=== PATIENT | female | born 1945 | race Caucasian/White ===

== ENCOUNTER → 2023-11-04 08:07 | Outpatient (REF) | payer MEDICARE, OTHER, SELFPAY | LOC: RAD 08:07 | PROVIDERS: ATTENDING PHYSICIAN Nurse Practitioner Family | DX: M79.604 Pain in right leg (principal) | CPT/HCPCS: 73590 ==

== ENCOUNTER → 2024-05-06 12:02 | Outpatient (REF) | payer MEDICARE, OTHER, SELFPAY | LOC: RAD 12:02 | PROVIDERS: ATTENDING PHYSICIAN Internal Medicine Cardiovascular Disease; FAMILY PHYSICIAN Nurse Practitioner Family; OTHER PHYSICIAN Nurse Practitioner Family | DX: R07.89 Other chest pain (principal) | CPT/HCPCS: 71046 ==

== ENCOUNTER → 2024-05-27 14:53 | Outpatient (REF) | payer MEDICARE, OTHER, SELFPAY | LOC: RCS 14:53 | PROVIDERS: ATTENDING PHYSICIAN Internal Medicine Cardiovascular Disease; FAMILY PHYSICIAN Nurse Practitioner Family | DX: R07.89 Other chest pain (principal); R06.09 Other forms of dyspnea; R94.31 Abnormal electrocardiogram [ECG] [EKG] | CPT/HCPCS: 93306 ==

== ENCOUNTER 2024-09-05 18:05 | Emergency (ER) | payer SELFPAY ==
[2024-09-05 18:11] VITALS: BP 184/83
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
[2024-09-05 22:32] VITALS: BP 187/63
== END 2024-09-05 22:50 | disposition home or self-care (01) ==
LOC: EMR 18:05
PROVIDERS: EMERGENCY PHYSICIAN Student in an Organized Health Care Education/Training Program; FAMILY PHYSICIAN Nurse Practitioner Family
DX: S13.4XXA Sprain of ligaments of cervical spine, initial encounter (principal); M25.562 Pain in left knee; V49.40XA Driver injured in collision with unspecified motor vehicles in traffic accident, initial encounter; Y92.410 Unspecified street and highway as the place of occurrence of the external cause; R03.0 Elevated blood-pressure reading, without diagnosis of hypertension; K57.92 Diverticulitis of intestine, part unspecified, without perforation or abscess without bleeding; Z85.528 Personal history of other malignant neoplasm of kidney; Z90.5 Acquired absence of kidney; Z98.0 Intestinal bypass and anastomosis status; Z88.8 Allergy status to other drugs, medicaments and biological substances
CPT/HCPCS: 99284; 72050; 73564

== ENCOUNTER 2024-10-18 15:57 | Emergency (ER) | payer MEDICARE, OTHER, SELFPAY ==
--- NOTE | 2024-10-18 16:13 | ED.GENMED ---
ED Provider Triage
<Vivienne Adams PA-C - Last Filed: 10/18/24 16:20>
-
Patient seen by provider in Triage?: Seen in Triage
A medical screening examination has been initiated by a qualified medical provider. Based on the assessment performed at this time, it has been determined that an emergent medical condition may exist and the patient has been informed that further
medical evaluation and possible additional diagnostic testing may be needed.
HPI: This is a medical evaluation conducted in person to initiate diagnostic evaluation and provide initial therapeutics. Please see further documentation by the treating clinician.
GENERAL: Alert , in no apparent distress
ENT: No visible abnormalities
LUNGS: No acute respiratory distress
irregularly irregular
NEUROLOGICAL: Alert and oriented
SKIN: Skin intact. No visible changes.
MUSCULOSKELETAL: Moving extremities normally
PSYCH: Normal and appropriate interaction.
79 y/o F with h/o lug ca, renal cell carcinoma
chest pain started briefly 10/14 evening but resolved
restarted overnight last night and felt like her bra was too tight
feels slighty like palpitations she thinks
she feels lightheaded
dv1ldyxz in planes frequently
feels heart is racing
symptoms slightly wose with deep breathing
on exam ekg nonishcmiec but freq pacs
hypertensive
not hypoxic
will w/u with labs, d dimer
History of Present Illness
<Vivienne Adams PA-C - Last Filed: 10/18/24 16:20>
General
Chief Complaint: Chest Pain
Time Seen by Provider: 10/18/24 20:09
<BRUNA Acuna - Last Filed: 10/18/24 23:02>
General
Source: patient
Exam Limitations: none
History of Present Illness
History of Present Illness:
This is a 79 year old female that comes in with c/o this tightness in her chest. States that she has been here since 3:30pm. State that on Thursday she ran to her car into the store. State that she felt like her bra was to tight. State that there was
a tight pressure in her chest and she felt lightheaded but this passed. Then last night she did not have any lightheadedness but had this tightness in the chest and it she had her bra on she would have taken it off. States that she went to bed and
awoke around 3:15am and she still felt this tightness. States that she went to the bathroom and went back to bed. States that today she has had the discomfort all day but was gone at this time. States that she thinks she is getting over a UTI.
Denies any fever, chills, SOB, abd pain, nausea, vomiting, diarrhea, headache, dizziness.
Past History
<Vivienne Adams PA-C - Last Filed: 10/18/24 16:20>
Past History
ED Past Medical History: Cancer (Renal cancer) and Other (Diverticulitis)
ED Past Surgical History: Bowel resection (Diverticulitis) and Urological (Partial nephrectomy on the left)
Social History
Tobacco: Non-smoker
Alcohol: None
Drug: None
Personal:
Living: with family
Employment: Retired
Family History
Family History: Other (Noncontributory)
<BRUNA Acuna - Last Filed: 10/18/24 23:02>
Past History
ED Past Medical History: Cancer (Renal cancer, Lung Cancer, Skin Cancer) and Other (Diverticulitis, Back pain, Glaucoma, )
ED Past Surgical History: Gynecological (Hysterectomy), Orthopedic (Right shoulder surgery, ) and Other (Tumor removed form head, Eye surgery, right lobectomy)
Social History
Tobacco: Former smoker
Personal:
Living: alone
Review of Systems
<BRUNA Acuna - Last Filed: 10/18/24 23:02>
Review of Systems
All Other Systems: ROS reviewed and negative except as documented in HPI and ROS
Constitutional: Reports no symptoms; Denies fever or chills
EENT: Reports no symptoms
Respiratory: Denies trouble breathing
Cardiac: Reports chest pain
ABD/GI: Reports no symptoms; Denies abdominal pain, nausea, vomiting or diarrhea
: Reports no symptoms
Musculoskeletal: Reports no symptoms
Skin: Reports no symptoms
Neurological: Reports other (Lightheaded on Thursday); Denies dizzy or headache
Psychiatric: Reports no symptoms
Phy Exam
<BRUNA Acuna - Last Filed: 10/18/24 23:02>
General Physical Exam
General Presentation: no apparent distress
General age: appears stated age
General Skin: warm and dry
General Habitus: elderly
General Mental: alert
General Hydration: appears well hydrated
ENT Exam
ENT Exam: TM's normal, pharynx normal and neck supple
Eye Exam
Eye Exam: EOMI
Cardiovascular Exam
Cardiovascular Exam: no edema, normal peripheral pulses and irregularly irregular (NSR with PAC's on Monitor)
Pulmonary Exam
Pulmonary Exam: lungs clear, no respiratory distress, no rales, chest non tender, no crackles, no rhonchi, no wheezing and no cough
Gastrointestinal Exam
Gastrointestinal Exam: normal bowel sounds, non tender, soft, no organomegaly, no pulsatile mass and non distended
Musculoskeletal Exam
Musculoskeletal Exam: full ROM and no edema
Skin Exam
Skin Exam: normal color, warm/dry, no rash and no petechia
Psychiatric Exam
Psychiatric Exam: normal mood/affect
Scores
<BRUNA Acuna - Last Filed: 10/18/24 23:02>
Heart Score for Chest Pain Patients
STEMI patient?: No
History: Slightly or Non-Suspicious
ECG: Normal
Age: >/= 65 years
Risk Factors: 1 or 2 Risk Factors
Troponin: </= Normal Limit
Heart Score for Chest Pain Patients: 3
Heart Score Risk: 2.5% MACE over next 6 weeks
Course
<Vivienne Adams PA-C - Last Filed: 10/18/24 16:20>
Orders/Labs/Results
Orders:
Orders
10/18/24 15:59
Electrocardiogram (*1) Urgent
Reason for Study: Chest Pain
EKG- Treatment ONCE
10/18/24 16:18
CR Chest - 2 Views Urgent
Comment:
Reason For Exam: chest pain
10/18/24 16:31
Complete Blood Count/With Diff Urgent
Comprehensive Metabolic Panel Urgent
D-Dimer Urgent
Magnesium Urgent
TSH Urgent
Troponin I Urgent
10/18/24 20:32
Sucralfate Suspension [Carafate Suspension] 1 gm PO NOW STA
10/18/24 20:33
Electrocardiogram (*1) Urgent
Reason for Study: Chest Pain
Other Reason for Exam: Repeat with Troponin
EKG- Treatment ONCE
10/18/24 20:37
Urinalysis Reflex To Culture Urgent
10/18/24 21:40
Troponin I Urgent
Abnormal Lab Results
10/18/24
16:31
Absolute Monos (auto) 0.7 H 10^3/uL
(0.1-0.6)
Creatinine 0.5 L mg/dL
(0.6-1.0)
Glucose 119 H mg/dl
(70-99)
10/18/24 16:31
10/18/24 16:31
Vital Signs
Initial and Last Documented VS:
Initial Vital Signs
Temp Pulse Resp BP Pulse Ox
97.7 F 87 18 188/87 97
10/18/24 16:14 10/18/24 16:14 10/18/24 16:14 10/18/24 16:14 10/18/24 16:14
Last Documented Vital Signs
Temp Pulse Resp BP Pulse Ox
97.7 F 90 22 188/87 97
10/18/24 16:14 10/18/24 21:42 10/18/24 21:37 10/18/24 16:14 10/18/24 21:42
<BRUNA Acuna - Last Filed: 10/18/24 23:02>
Orders/Labs/Results
Orders:
Orders
10/18/24 15:59
Electrocardiogram (*1) Urgent
Reason for Study: Chest Pain
EKG- Treatment ONCE
10/18/24 16:18
CR Chest - 2 Views Urgent
Comment:
Reason For Exam: chest pain
10/18/24 16:31
Complete Blood Count/With Diff Urgent
Comprehensive Metabolic Panel Urgent
D-Dimer Urgent
Magnesium Urgent
TSH Urgent
Troponin I Urgent
10/18/24 20:32
Sucralfate Suspension [Carafate Suspension] 1 gm PO NOW STA
10/18/24 20:33
Electrocardiogram (*1) Urgent
Reason for Study: Chest Pain
Other Reason for Exam: Repeat with Troponin
EKG- Treatment ONCE
10/18/24 20:37
Urinalysis Reflex To Culture Urgent
10/18/24 21:40
Troponin I Urgent
Abnormal Lab Results
10/18/24
16:31
Absolute Monos (auto) 0.7 H 10^3/uL
(0.1-0.6)
Creatinine 0.5 L mg/dL
(0.6-1.0)
Glucose 119 H mg/dl
(70-99)
10/18/24 16:31
10/18/24 16:31
Hyperglycemia. D-dimer normal at 0.34, Troponin <0.012, TSH normal at 1.30,
Vital Signs
Initial and Last Documented VS:
Initial Vital Signs
Temp Pulse Resp BP Pulse Ox
97.7 F 87 18 188/87 97
10/18/24 16:14 10/18/24 16:14 10/18/24 16:14 10/18/24 16:14 10/18/24 16:14
Last Documented Vital Signs
Temp Pulse Resp BP Pulse Ox
97.7 F 90 22 188/87 97
10/18/24 16:14 10/18/24 21:42 10/18/24 21:37 10/18/24 16:14 10/18/24 21:42
<BRUNA Acuna - Last Filed: 10/18/24 23:02>
MDM/Problems Addressed
Differential Diagnosis Includes:
GERD, Coronary syndrome.
MDM/Problems Addressed:
This is a 79 year old female that comes in with c/o chest tightness. States that this started on Thursday. State that she had had this all day. At the time of exam patient denied any discomfort until the end of exam and then she started to feel like
her heart was racing.
Explained to patient that she is having extra beats. Will get Repeat Troponin, ECG and give Carafate. Patient states that she has been drinking more tea. Explained that this has caffeine and can cause increased in GERD. Explained to patient that
even though her Troponin may be negative she will be place on the Cardiology hot line for further evaluation.
Repeat ECG: rate 87, NSR, with PAC's. Left axis, QRS is normal. Negative for ischemia.
Back into see patient. Explained that her Second Troponin is also normal. Patient refused the Carafate. Explained that this may be some reflux due to all the tea she has been drinking due to the Caffeine. Encouraged patient to decrease her caffeine
intake. Will place patient on the Cardiology hot line as he may need to have place patient on medication to control her rhythm. Patient to return with increased or changing pain.
Chronic conditions affecting care: Cancer
Acute Exacerbation and/or Progression of Chronic Illness:
NA
<BRUNA Acuna - Last Filed: 10/18/24 23:02>
*Radiology
Radiology exam reviewed: radiology read reviewed (Chest-NO acute cardiopulmary process. )
*Pulse Oximetry
Patient hypoxic: no
*EKG
Interpreted by ED Provider?: Yes
Heart Rate: 93
Rate: normal
Rhythm: sinus and PAC's
[place]: left axis deviation
QRS Pattern: low voltage
Ischemia: no ischemia
*Notching Press Operator Interpretation
Rate: normal
Heart Rate: 80
Rhythm: PAC's
*Critical Care Note
Total Time (30-74mins, 75-104mins- exclusive of procedures): Not Applicable
ED Attending Note
<Vivienne Adams PA-C - Last Filed: 10/18/24 16:20>
-
Portions of this chart may have been created with voice recognition software.� Occasional wrong word or��sound alike� substitutions may have occurred due to the inherent limitations of voice recognition software.
Discharge Plan
Departure
Patient Disposition: Home (Routine Discharge)
Date of Disposition: 10/18/24
Time of Disposition: 22:55
Patient with high blood pressure during this ER visit?: Yes
Condition: Good
Covid-19: Not Applicable
Discharge Problem:
Chest pain
Instructions: Chest Pain DCA Follow Up, BLOOD PRESSURE
Prescriptions:
No Action
No Current Medications
0
Referrals:
UNKNOWN - PT DOES,NOT KNOW [Unknown Provider] -
Activity Restrictions/Additional Instructions:
As discussed, your blood work is normal. Your chest x-ray is negative. You are having premature atrial contractions. You have been place on the cardiology hot line. This means that they should call you tomorrow and get you into see the Block Bolter Mule Operator
or someone in there office. Please try and decrease your Caffeine intake as this can cause reflux. IF YOU HAVE INCREASED OR CHANGING PAIN, OR YOU HAVE ANY OTHER CONCERNS PLEASE RETURN TO THE EMERGENCY ROOM.
Interventions
Interventions:
*Risk Screen - Suicide Last Done: 10/18/24 16:14
*General Assessment Last Done: 10/18/24 16:14
*Neglect/Abuse Screening Last Done: 10/18/24 16:14
*ED COVID-19 Vaccine History Last Done: 10/18/24 21:42
ED- Cardiac Assessment Last Done: 10/18/24 21:42
Discharge Date and Time
Print Language: [place]
[2024-10-18 16:14] VITALS: BP 188/87
[2024-10-18 16:44] LABS: % Basophils 0.4 % (0-2); % Eosinophils 0.9 % (0-6); % Immature Granulocytes 0.2 % (0-0.5); % Lymphocytes 26.7 % (20.5-51.1); % Monocytes 7.8 % (1.7-9.3); Absolute Eosinophils 0.1 10^3/uL (0-0.7); Absolute Lymphocytes 2.4 10^3/uL (1.2-3.4); Absolute Monocytes 0.7 10^3/uL (0.1-0.6); Absolute Neutrophils 5.8 10^3/uL (1.4-6.5); Hematocrit 40.2 % (37.0-47.0); Hemoglobin 13.9 g/dL (12.0-16.0); Mean Corp Hgb Conc. 34.6 g/dL (33.0-37.0); Mean Corpuscular Hgb 29.7 pg (27.0-31.0); Mean Corpuscular Volume 85.9 fL (81.0-99.0); Mean Platelet Volume 9.9 fL (7.4-10.4); Nucleated Red Blood Cells % 0 %; Platelet Count 275 10^3/uL (130-400); Red Blood Cell Count 4.68 10^6/uL (4.20-5.40)
[2024-10-18 16:57] LABS: D-Dimer 0.34 ug/mlFEU (0.00-0.50)
[2024-10-18 17:03] LABS: ALT (SGPT) 17 U/L (0-35); AST (SGOT) 23 U/L (14-36); Albumin 4.3 g/dl (3.5-5.0); Alkaline Phosphatase 94 U/L (38-126); Blood Urea Nitrogen 16 mg/dl (7-17); Calcium 9.6 mg/dl (8.4-10.2); Carbon Dioxide 26 mmol/L (22-30); Chloride 103 mmol/L (98-107); Glucose 119 mg/dl (70-99); Magnesium 1.9 mg/dl (1.6-2.3); Potassium 3.8 mmol/L (3.5-5.1); Sodium 137 mmol/L (135-145); Total Bilirubin 0.7 mg/dl (0.2-1.3); Total Protein 6.9 g/dl (6.3-8.2); eGFR > 60.00
[2024-10-18 17:10] LABS: Troponin I < 0.012 ng/ml
[2024-10-18 21:40] VITALS: BP 161/72
[2024-10-18 22:00] VITALS: BP 180/59
[2024-10-18 22:22] LABS: Troponin I < 0.012 ng/ml
[2024-10-18 23:21] VITALS: BP 188/87
[2024-10-18 23:54] LABS: Urine Albumin Trace (Neg - Trace); Urine Bilirubin Negative (Negative); Urine Character Slightly Cloudy (Clear); Urine Color Yellow; Urine Glucose Negative (Negative); Urine Ketone 1+ (Negative); Urine Leukocyte 2+ (Negative); Urine Nitrite Positive (Negative); Urine Occult Blood 1+ (Negative); Urine Urobilinogen Negative (Neg - 1+)
[2024-10-19 00:48] LABS: Urine Bacteria Many (Negative); Urine Squamous Cell >30 /LPF (Few); Urine White Cell 50-60 /HPF (0-5)
== END 2024-10-18 23:20 | disposition home or self-care (01) ==
LOC: EMR 15:57
PROVIDERS: Clinical Nurse Specialist Family Health; Physician Assistant; EMERGENCY PHYSICIAN Emergency Medicine; FAMILY PHYSICIAN Nurse Practitioner Family
DX: R07.89 Other chest pain (principal); R00.2 Palpitations; I10 Essential (primary) hypertension; Z85.118 Personal history of other malignant neoplasm of bronchus and lung; Z85.528 Personal history of other malignant neoplasm of kidney; Z90.5 Acquired absence of kidney; Z90.710 Acquired absence of both cervix and uterus
CPT/HCPCS: 99284; 71046; 80053; 81003; 81015; 83735; 84443; 84484; 85025; 85379; 87077; 87086; 93005

== ENCOUNTER → 2024-11-18 08:36 | Outpatient (REF) | payer MEDICARE, OTHER, SELFPAY | LOC: HWRAD 08:36 | PROVIDERS: ATTENDING PHYSICIAN Nurse Practitioner Family | DX: G93.0 Cerebral cysts (principal) | CPT/HCPCS: 70450 ==